=== PATIENT | male | born 1965 | race Caucasian/White ===

== ENCOUNTER 2016-10-30 23:35 | Inpatient (IN) | payer OTHER ==
--- NOTE | ~2016-10-30 | IDS ---
Interim Discharge Summary [facility] [address] [place]. [address] NAME: CARLOS MELENDEZ : 61 STATUS : ADM IN PAT#: [id number] AGE: 51 ADM/REG DATE : 10/30/16 MR#: [id number] REPORT SERV DATE: 11/03/16 DICTATED BY: HARDIK SOTO DATE: 11/03/16 REPORT STATUS : Draft TRANSCRIBED BY: MODEliza DATE: 11/03/16 ADMISSION DATE: 10/30/2016 DISCHARGE DATE: BRIEF HISTORY OF PRESENT ILLNESS: Please see Dr. Person's detailed history and physical from 10/30/2016 for full details. Briefly, the patient is a 51-year-old gentleman with past medical history of fairly heavy alcohol abuse with associated cirrhosis, who was admitted back in April of last year for a variceal bleed, who presented back to the emergency department on the day of admission for dark stools and hematemesis. He was seen by GI who performed an EGD on him emergently. He was intubated by Anesthesia. He was found to have a grade 1 esophageal varix with some associated gastritis and a blood-filled stomach. He had an esophageal varix banded and was continued on proton pump inhibitor, octreotide, and Rocephin. He was extubated the following day by Dr. Raymundo on morning rounds and has remained clinically and hemodynamically stable since that time. At this point, Gastroenterology has signed off him with recommendations to continue antibiotics for seven days with daily PPI and ongoing monitoring of H and H level every 12 hours and he is moving to the floor. ACTIVE PROBLEM LIST: 1. Acute upper gastrointestinal bleed secondary to bleeding esophageal varix, status post endoscopic banding on 10/31, status post 4 units of FFP and 4 units of packed red blood cells. 2. Acute blood loss anemia associated with acute upper gastrointestinal bleed. 3. Acute hypoxemic respiratory failure associated with acute upper gastrointestinal bleed, extubated on 11/01. 4. Alcoholic cirrhosis. 5. Alcohol abuse. 6. Tobacco abuse. 7. Prophylaxis. He is on a PPI and SCDs and JUD's. We are monitoring H and H daily. He has been cleared for transfer to floor by GI and is a full code. He has scheduled Ativan for alcohol withdrawal symptoms and is on empiric Rocephin for a total of seven days from the time of his hospitalization. He is on thiamine and multivitamins and has morning labs ordered for tomorrow. He is tolerating a regular diet and will be handed off to Hospital Medicine Service for ongoing care. Navigator has been notified. Please see daily progress notes from Dr. Raymundo for additional details and call with questions. DELORES/KRISTINE Hardik Soto MD / [id number] Interim Discharge Summary [address] [address] NAME: CARLOS MELENDEZ : 61 STATUS : ADM IN [facility]#: [id number] AGE: 51 ADM/REG DATE : 10/30/16 MR#: [id number] REPORT SERV DATE: 11/03/16 DICTATED BY: HARDIK SOTO DATE: 11/03/16 REPORT STATUS : Draft TRANSCRIBED BY: KRISTINE DATE: 11/03/16 CC: MD Joey Sexton M.D.
--- NOTE | ~2016-10-30 | EGD ---
EGD REPORT [facility] [address] [place] [address] NAME: CARLOS MELENDEZ : 61 STATUS : ADM IN PAT#: [id number] AGE: 51 ADM/REG DATE : 10/30/16 MR#: [id number] REPORT SERV DATE: 10/31/16 DICTATED BY: LAURIE GALEANA III DATE: 10/31/16 REPORT STATUS : Draft [facility]ANSCRIBED BY: [facility] DATE: 10/31/16 Endoscopy Center Patient Name: Carlos Melendez Date of : 1965 Attending MD: LAURIE GALEANA III, MD Procedure Date No Time: 10/31/2016 Procedure: Upper GI endoscopy Indications: Hematemesis Medicines: General Anesthesia Complications: No immediate complications. Procedure: After obtaining informed consent, the endoscope was passed under direct vision. Throughout the procedure, the patient's blood pressure, pulse, and oxygen saturations were monitored continuously. The GIF IT Q160 [id number] was introduced through the mouth, and advanced to the fourth part of duodenum. The PCF H190L [id number] was introduced through the and advanced to the. The upper GI endoscopy was accomplished with ease. The patient tolerated the procedure well. Findings: Grade II varices with red juan c were found in the lower third of the esophagus. Three bands were successfully placed with complete eradication, resulting in deflation of varices. A small hiatus hernia was present. Severe portal hypertensive gastropathy was found in the entire examined stomach. Diffuse mildly erythematous mucosa c/w portal duodenopathy without active bleeding and with stigmata of bleeding was found in the entire duodenum. Impression: - Grade II esophageal varices. Completely eradicated. Banded. - Hiatus hernia. - Portal hypertensive gastropathy. - Erythematous duodenopathy. Procedure Code(s): --- Professional --- 06501, Esophagogastroduodenoscopy, flexible, transoral; with band ligation of esophageal/gastric varices Diagnosis Code(s): --- Professional --- I85.00, Esophageal varices without bleeding K44.9, Diaphragmatic hernia without obstruction or gangrene EGD REPORT [facility] [address] [place] [address] [place]. [address] NAME: CARLOS MELENDEZ : [birth year] STATUS : ADM IN [facility]#: [id number] AGE: 51 ADM/REG DATE : 10/30/16 MR#: [id number] REPORT SERV DATE: 10/31/16 DICTATED BY: LAURIE GALEANA III DATE: 10/31/16 REPORT STATUS : Draft TRANSCRIBED BY: [employer] DATE: 10/31/16 K76.6, Portal hypertension K31.89, Other diseases of stomach and duodenum K92.0, Hematemesis CPT copyright 2013 [employer]. All rights reserved. The codes documented in this report are preliminary and upon director of casework services review may be revised to meet current compliance requirements. LAURIE GALEANA III, MD 10/31/2016 6:19 PM This report has been signed electronically. Number of Addenda: 0 Note Initiated On: 10/31/2016 5:41 PM Scope Withdrawal Time 0 hours 0 minutes 0 seconds [address] [facility] [place] [address]
--- NOTE | ~2016-10-30 | OP ---
Record Of Operation [facility] [address] [place]. [address] NAME: CARLOS MELENDEZ : 61 STATUS : ADM IN PAT#: [id number] AGE: 51 ADM/REG DATE : 10/30/16 MR#: [id number] REPORT SERV DATE: 10/31/16 DICTATED BY: DEBBIE KRISHNAMURTHY DATE: 10/31/16 REPORT STATUS : Draft TRANSCRIBED BY: MODL DATE: 10/31/16 DATE OF PROCEDURE: 10/31/2016 PROCEDURE: Panendoscopy. PREOPERATIVE DIAGNOSIS: Upper GI bleed, anemia, history of ETOH, cirrhosis. POSTOPERATIVE DIAGNOSES: 1. Distal esophagitis noted with superficial ulceration. 2. Schatzki's ring noted. 3. Questionable grade 1 varices noted. 4. Blood-filled fundus, cannot exclude underlying lesion there. 5. Portal gastropathy. PROCEDURE: The risk was explained prior to the procedure. The patient was intubated prior to procedure. The Olympus video endoscope was advanced into the esophagus. There was blood noted in the esophagus and stomach. After clearing lot of venous blood, distal esophagitis superficial ulceration noted. Schatzki's ring noted and questionable grade 1 varices noted, which flatten with insufflation. The scope was then passed in the stomach. Portal gastropathy noted. On right side, he has large amount of blood clot in the fundus. Cleared most of this. No underlying only obvious lesion noted. But, again still some retained blood clot. Remainder of the stomach otherwise unremarkable. The scope was then advanced to duodenum first and second portion, which appeared normal. The scope was pulled back in the stomach, then pulled back in the esophagus and removed. The patient tolerated the procedure well. No complications noted. DC/KRISTINE Debbie Krishnamurthy M.D. / [id number] CC: MD Joey Garduno M.D. William M. Cooney, MD
--- NOTE | ~2016-10-30 | EGD ---
EGD REPORT [facility] [address] [place] [address] NAME: CARLOS MELENDEZ : 61 STATUS : ADM IN PAT#: [id number] AGE: 51 ADM/REG DATE : 10/30/16 MR#: [id number] REPORT SERV DATE: 10/31/16 DICTATED BY: LAURIE GALEANA III DATE: 10/31/16 REPORT STATUS : Draft [facility]ED [facility]: [facility] DATE: 10/31/16 Endoscopy Center Patient Name: Carlos Melendez Date of : 1965 Attending MD: LAURIE GALEANA III, MD Procedure Date No Time: 10/31/2016 Procedure: Upper GI endoscopy Indications: Hematemesis Medicines: General Anesthesia Complications: No immediate complications. Procedure: After obtaining informed consent, the endoscope was passed under direct vision. Throughout the procedure, the patient's blood pressure, pulse, and oxygen saturations were monitored continuously. The GIF IT Q160 [id number] was introduced through the mouth, and advanced to the fourth part of duodenum. The PCF H190L [id number] was introduced through the mouth, and advanced to the. The upper GI endoscopy was accomplished with ease. The patient tolerated the procedure well. Findings: Grade II varices with red juan c were found in the lower third of the esophagus. Three bands were successfully placed with complete eradication, resulting in deflation of varices. A small hiatus hernia was present. Severe portal hypertensive gastropathy was found in the entire examined stomach. Diffuse mildly erythematous mucosa c/w portal duodenopathy without active bleeding and with stigmata of bleeding was found in the entire duodenum. Impression: - Grade II esophageal varices. Completely eradicated. Banded. - Hiatus hernia. - Portal hypertensive gastropathy. - Erythematous duodenopathy. Procedure Code(s): --- Professional --- 88169, Esophagogastroduodenoscopy, flexible, transoral; with band ligation of esophageal/gastric varices Diagnosis Code(s): --- Professional --- I85.00, Esophageal varices without bleeding K44.9, Diaphragmatic hernia without obstruction or gangrene EGD REPORT [facility] [address] [facility] [place]. [address] NAME: CARLOS MELENDEZ : [birth year] STATUS : ADM IN [facility]#: [id number] AGE: 51 ADM/REG DATE : 10/30/16 MR#: [id number] REPORT SERV DATE: 10/31/16 DICTATED BY: LAURIE GALEANA III DATE: 10/31/16 REPORT STATUS : Draft TRANSCRIBED BY: [employer] DATE: 10/31/16 K76.6, Portal hypertension K31.89, Other diseases of stomach and duodenum K92.0, Hematemesis CPT copyright 2013 [employer]. All rights reserved. The codes documented in this report are preliminary and upon greenskeeper supervisor review may be revised to meet current compliance requirements. LAURIE GALEANA III, MD 10/31/2016 6:19 PM This report has been signed electronically. Number of Addenda: 0 Note Initiated On: 10/31/2016 5:41 PM Scope Withdrawal Time 0 hours 0 minutes 0 seconds [address] [facility] [place] [address]
--- NOTE | ~2016-10-30 | HP ---
History And Physical [address] [place]. [address] NAME: CARLOS MELENDEZ : [birth year] STATUS : ADM IN [facility]#: [id number] AGE: 51 ADM/REG DATE : 10/30/16 MR#: [id number] REPORT SERV DATE: 10/31/16 DICTATED BY: DEBBIE PERSON DATE: 10/31/16 REPORT STATUS : Draft TRANSCRIBED BY: MODL DATE: 10/31/16 DATE OF ADMISSION: 10/30/2016 CHIEF COMPLAINT: Vomiting blood. HISTORY OF PRESENT ILLNESS: The patient is a 51-year-old white gentleman with a past medical history of alcohol abuse, cirrhosis, and osteoarthritis who was admitted to the hospital back in April of last year for a varicocele bleed, who now comes into the emergency room complaining of dark stools and vomiting blood. Per ER report, the patient had been having some melena for the past two to three days and then on the evening of admission started vomiting bright red blood. He had several episodes of bright red emesis downstairs in the emergency room. Hemodynamically, he was okay, but given his history of variceal bleeds and the large amount of blood that he was vomiting, decision was made to admit to the ICU tonight for management. Gastroenterology had already been consulted and was coming in to perform an EGD tonight, so the patient was intubated by Anesthesia with plans to leave intubated for the next 24 to 48 hours. The patient is currently on the ventilator and unable to provide history. EGD has already been performed by Dr. Charles which revealed grade 1 esophageal varices as well as some gastritis and a blood-filled stomach. The patient remains a Protonix drip and octreotide drip at this time with plans for followup endoscopy tomorrow. PAST MEDICAL HISTORY: 1. Alcohol abuse. 2. Cirrhosis. 3. History of varicocele bleed. 4. Osteoarthritis. HOME MEDICATIONS: 1. Pepcid 40 mg p.o. daily. 2. Advil 400 mg twice daily as needed for pain. 3. Tylenol 500 mg twice daily as needed for pain. 4. ProAir three puffs inhaled twice daily as needed for shortness of breath. 5. Artificial tears one drop daily as needed for dry eyes. 6. Vitamin B12 one tab p.o. daily. 7. Ferrous sulfate 325 mg p.o. daily. 8. Vitamin C one tab p.o. daily. ALLERGIES: NO KNOWN DRUG ALLERGIES. SOCIAL HISTORY: History of alcohol use, unclear at this time how much. No tobacco use. No IV drug abuse. FAMILY HISTORY: Per the chart, positive for coronary disease and CVA. REVIEW OF SYSTEMS: Unable to obtain secondary to sedation and intubation. History And Physical [address] [address] NAME: CARLOS MELENDEZ : [birth year] STATUS : ADM IN [facility]#: [id number] AGE: 51 ADM/REG DATE : 10/30/16 MR#: [id number] REPORT SERV DATE: 10/31/16 DICTATED BY: DEBBIE PERSON DATE: 10/31/16 REPORT STATUS : Draft TRANSCRIBED BY: KRISTINE DATE: 10/31/16 PHYSICAL EXAMINATION: VITAL SIGNS: Temperature 98.7, heart rate 105, respiratory rate 21, blood pressure 111/64. GENERAL: Sedated, intubated. HEENT: Pupils equal, round, and reactive to light. ET tube in place. NECK: Supple. Nontender. No lymphadenopathy. No thyromegaly. No jugular venous distention. LUNGS: Clear to auscultation bilaterally. CARDIOVASCULAR: Tachycardic. No murmurs, rubs, or gallops. ABDOMEN: Soft, nontender, nondistended. Positive bowel sounds. No hepatosplenomegaly. EXTREMITIES: No cyanosis, clubbing, or edema. NEURO: Sedated. PSYCH: Unable to assess. LABS AND IMAGING: CBC with a hemoglobin of 8, white blood cell count of 11, platelets are 220. INR 1.4. Metabolic profile unremarkable. LFTs unremarkable. Alcohol level 27. Troponin normal. ASSESSMENT AND PLAN: The patient is a 51-year-old white gentleman with past medical history alcohol abuse, cirrhosis, and varices with a history of varicocele bleed who now presents with recurrent varicocele bleed, currently on the ventilator. 1. Respiratory failure. The patient will remain intubated for now for repeat endoscopy tomorrow. We will continue ventilator management. We will get a followup arterial blood gas and titrate his ventilator accordingly. We will provide daily awakening trials while the patient is intubated to assess mental status. Currently, he is requiring Precedex and fentanyl for sedation. We will add propofol as needed. 2. Acute variceal bleed. The patient is status post endoscopy by Dr. Charles with findings as above. He remains on octreotide and Protonix drip. We will monitor his complete blood count q.6 hours for the next 24 hours and transfuse when indicated. Currently, he is hemodynamically stable, but we will monitor his blood pressure closely and start vasopressors if needed. 3. History of alcohol abuse. We will monitor closely for signs and symptoms of alcohol withdrawal. We will place him on thiamine as well as multivitamin and folate. I will also place him on CIWA protocol for alcohol withdrawal. 4. The patient will be on SCDs for deep venous thrombosis prophylaxis. He is on a Protonix drip for gastrointestinal prophylaxis. 5. The patient is full code. 6. The patient has a high probability of sudden clinically significant or imminent life- threatening deterioration. Total critical care time spent on this patient was 40 minutes. [place]/KRISTINE Debbie Person MD History And Physical [address] [address] NAME: CARLOS MELENDEZ : 61 STATUS : ADM IN [facility]#: [id number] AGE: 51 ADM/REG DATE : 10/30/16 MR#: [id number] REPORT SERV DATE: 10/31/16 DICTATED BY: DEBBIE PERSON DATE: 10/31/16 REPORT STATUS : Draft TRANSCRIBED BY: KRISTINE DATE: 10/31/16 / [id number] CC: MD Joey Garduno M.D.
--- NOTE | ~2016-10-30 | CN ---
Consultation Report [address] [place] [id number] [facility] [address] [place]. [address] NAME: CARLOS MELENDEZ : 61 STATUS : ADM IN PAT#: [id number] AGE: 51 ADM/REG DATE : 10/30/16 MR#: [id number] REPORT SERV DATE: 10/31/16 DICTATED BY: DEBBIE KRISHNAMURTHY DATE: 10/31/16 REPORT STATUS : Draft TRANSCRIBED BY: KRISTINE DATE: 10/31/16 CONSULTATION DATE OF CONSULTATION: 10/31/2016 This is a 51-year-old white male, who has been seen by Dr. Wayne before in April, who presents with a two-day history of dark stools and also coffee-grounds emesis. No fever. Has had some mild abdominal pain; history of some osteoarthritis, on nonsteroidals; has a history of alcoholic cirrhosis, had EGD and evaluation by Dr. Wayne back in 04/2016, found to have grade 1 varices and mild portal gastropathy. He has continued to smoke and drink. Has asthma, on an inhaler. No abdominal surgeries. FAMILY HISTORY: Positive for alcoholic cirrhosis. SOCIAL HISTORY: As outlined above. Hemoglobin of 8, white count of 11,000, platelet count of 220,000, and INR of 1.4. LFTs unremarkable except for alkaline phos of 198. PHYSICAL EXAMINATION: GENERAL: An acutely ill-appearing white male but alert. HEENT: Anicteric. NECK: Negative. CHEST: Clear to percussion. HEART: Tachycardia. ABDOMEN: Soft. Some mild distention. Minimal tenderness. Has an umbilical hernia. Bowel sounds present. EXTREMITIES: Grossly intact. NEUROLOGIC: Grossly intact. ASSESSMENT: 1. Upper gastrointestinal bleed anemia; history of ETOH cirrhosis with past history of grade 1 varix; and portal gastropathy, hemoglobin of 8, normal platelets, normal INR. 2. Asthma. 3. Osteoarthritis. SUGGESTIONS: Protonix drip and Sandostatin drip, and we will do an EGD tonight. Thank you very much for the consultation. LEVAR/KRISTINE Debbie Krishnamurthy M.D. Consultation Report [facility] [address] [place]. [address] NAME: CARLOS MELENDEZ : 61 STATUS : ADM IN PAT#: [id number] AGE: 51 ADM/REG DATE : 10/30/16 MR#: [id number] REPORT SERV DATE: 10/31/16 DICTATED BY: DEBBIE KRISHNAMURTHY DATE: 10/31/16 REPORT STATUS : Draft TRANSCRIBED BY: MODL DATE: 10/31/16 / [id number] CC: MD Joey Garduno M.D. William M. Cooney, MD
--- NOTE | ~2016-10-30 | DS ---
Discharge Summary [facility] [address] [place]. [address] NAME: CARLOS MELENDEZ : 61 STATUS : DIS IN PAT#: [id number] AGE: 51 ADM/REG DATE : 10/30/16 MR#: [id number] REPORT SERV DATE: 11/06/16 DICTATED BY: AFRICA HATCH DATE: 11/05/16 REPORT STATUS : Draft TRANSCRIBED BY: MODL DATE: 11/05/16 ADMISSION DATE: 10/30/2016 DISCHARGE DATE: 11/05/2016 HOSPITAL COURSE: This dictation is in addition to interim discharge summary dictated by Dr. Nair on 11/03/2016. I assumed care of the patient till 11/04/2016. At the time of my assumption of care, the patient was out of the ICU and had been transferred to the floor. The patient remained hemodynamically stable with no evidence of alcohol withdrawal. He was continued on a seven-day course of IV Rocephin started in the ICU, today will be the seventh. Today, will be day #7 of antibiotic therapy. After completion of antibiotic therapy, the patient will be cleared for discharge to home. He has remained hemodynamically stable with no evidence of GI bleeding. Given resolution of symptoms on completion of management, the patient will be discharged to home. Plan has been discussed with the patient who voices understanding and is agreeable with this plan. DISCHARGE DIAGNOSES: 1. Cirrhosis. 2. Acute gastrointestinal bleed. 3. Acute hypoxic respiratory failure. 4. Alcohol abuse. 5. Tobacco abuse. 6. Hypokalemia. DISCHARGE PHYSICAL EXAMINATION: VITAL SIGNS: Blood pressure 118/73, a pulse of 94, respirations 17, O2 saturation at 97% on room air, temperature 98.7. GENERAL: The patient lying in bed, in no acute distress. Appears stated age. HEENT: Normocephalic, atraumatic. Extraocular motors intact. Moist oral mucosa. Anicteric sclerae. Pupils round and reactive to light and accommodation. No conjunctival pallor. No conjunctival injection noted. NECK: Trachea midline and symmetric. No JVD present. No thyromegaly noted. No lymphadenopathy noted. CHEST: Nontender to palpation. No scars noted. CARDIOVASCULAR: Regular rate and rhythm. S1, S2. No murmurs, rubs, or gallops. LUNGS: Lungs are clear to auscultation bilaterally. No rhonchi, wheezes, rales. ABDOMEN: Positive bowel sounds. Distended and nontender to palpation. EXTREMITIES: No cyanosis, no clubbing, no edema. NEURO: Alert and oriented x3. No focal deficits appreciated. DISCHARGE MEDICATIONS: The patient will continue on medications which would include famotidine 40 mg p.o. every morning, albuterol three puffs inhalations p.r.n., ferrous sulfate 3 mg to 5 mg p.o. daily, pantoprazole 40 mg p.o. daily. IMAGING: Abdominal ultrasound, impression: Scant amount of ascites. This would preclude safe ultrasound-guided paracentesis. The ascites appears simple. There does not appear to be any debris or septations were present. Discharge Summary [address] [address] NAME: CARLOS MELENDEZ : 61 STATUS : DIS IN PAT#: [id number] AGE: 51 ADM/REG DATE : 10/30/16 MR#: [id number] REPORT SERV DATE: 11/06/16 DICTATED BY: AFRICA HATCH DATE: 11/05/16 REPORT STATUS : Draft TRANSCRIBED BY: KRISTINE DATE: 11/05/16 DISPOSITION: The patient will be discharged to home. He has been counseled on alcohol abstinence and tobacco abstinence. Activity as tolerated. Diet as tolerated. Greater than 30 minutes was spent planning discharge, coordinating care, and dictation of new medication reconciliation, writing prescription. WENCESLAO/KRISTINE Africa Hatch MD / [id number] CC: MD Joey Kim M.D.
[2016-10-30 23:27] LABS: BASOPHILS 0.2 %; BASOPHILS ABSOLUTE 0.02 10/3/uL (0.0-0.16); EOSINOPHILS 0.1 %; EOSINOPHILS ABSOLUTE 0.01 10/3/uL (0.0-0.53); HEMATOCRIT 25.4 % (40.0-51.0); IMMATURE GRANULOCYTES 0.3 %; IMMATURE GRANULOCYTES ABSOLUTE 0.03 10/3/uL (0.0-0.11); LYMPHOCYTES 10.7 %; LYMPHOCYTES ABSOLUTE 1.19 10/3/uL (0.67-4.30); MEAN CORPUS HGB CONC 31.5 g/dL (32.0-36.0); MEAN PLATELET VOLUME 7.9 fL (9.2-13.0); MONOCYTES 7.3 %; MONOCYTES ABSOLUTE 0.81 10/3/uL (0.21-1.20); NEUTROPHILS 81.4 %; NEUTROPHILS ABSOLUTE 9.02 10/3/uL (2.02-8.40); PLATELET COUNT 220 10/3/uL (150-400); RBC DISTRIBUTION WIDTH 18.8 % (12.0-16.0)
[~2016-10-30 23:35] MED LIST: ACET500CAP PO; ADVIL PO; ALEVE220 MG PO; FERROUS SULF325 M1 PO; PEP20 PO; PROAIR HFA INH; PROTONIX PO; REFRESH OPH; VITAMIN B-12 PO; VITAMIN C PO
[2016-10-30 23:38] LABS: INTERNATIONAL NORMAL RATI 1.4 UNITS (-); PARTIAL THROMBO TIME 29.8 SEC (22.5-37.2); PROTIME (NOT ORD) 16.9 SEC (12.0-14.5)
[2016-10-30 23:39] LABS: MEAN CORPUSCULAR HEMOGLOB 30.8 pg (26.0-34.0); MEAN CORPUSCULAR VOLUME 97.7 fL (80-100); WHITE BLOOD CELLS 11.1 10/3/uL (4.5-10.5)
[2016-10-30 23:44] LABS: A/G RATIO 0.6 (0.7-1.9); ALBUMIN 2.5 G/DL (3.5-5.0); ALCOHOL 27 MG/DL (0); CALCIUM, SERUM 7.6 MG/DL (8.5-10.4); CHLORIDE, SERUM 107 MMOL/L (96-112); CO2 (CARBON DIOXIDE) 26 MMOL/L (24-34); CREATININE 0.65 MG/DL (0.70-1.30); GFR AFRICAN AMERICAN 129 ML/MIN (>=60); GFR NON AFRICAN AMERICAN 111 ML/MIN (>=60); POTASSIUM, SERUM 4.1 MMOL/L (3.5-5.3); SGOT(AST) 37 U/L (5-40); SGPT(ALT) 19 U/L (5-65); SODIUM, SERUM 145 MMOL/L (135-148); TOTAL PROTEIN 6.5 G/DL (6.0-8.5); TROPONIN I <0.02 NG/ML (<0.05)
[2016-10-30 23:45] LABS: ALKALINE PHOSPHATASE 198 U/L (45-117); BUN (BLOOD UREA NITROGEN) 15 MG/DL (6-23); GLUCOSE, SERUM 98 MG/DL (60-99); TOTAL BILIRUBIN 0.9 MG/DL (0-1.2)
[2016-10-31 00:30] LABS: MANUAL DIFF NO %
[2016-10-31 03:49] LABS: ALLENS TEST Pos; BE (BASE EXCESS) -2.3 MEQ/L (0 +/- 2.5); CARBOXYHEMOGLOBIN 0.3 % (0-3); HCO3 (ACTUAL BICARBONATE) 22.2 MEQ/L (23-27); INSTRUMENT SERIAL # 35151; MODE CMV; O2 CONTENT 11.2 VOL% (18-24); OPERATOR ID 31061; PCO2 (CO2 TENSION) 37 MMHG (35-45); PO2 (O2 TENSION) 145 MMHG (79-93); SAMPLE Arterial; TIDAL VOLUME 500 ML
[2016-10-31 04:25] LABS: INTERNATIONAL NORMAL RATI 1.6 UNITS (-); PARTIAL THROMBO TIME 33.7 SEC (22.5-37.2); PROTIME (NOT ORD) 19.1 SEC (12.0-14.5)
[2016-10-31 04:30] LABS: BASOPHILS 0.1 %; BASOPHILS ABSOLUTE 0.01 10/3/uL (0.0-0.16); EOSINOPHILS 0 %; HEMOGLOBIN 7.1 g/dL (13.6-17.8); IMMATURE GRANULOCYTES 0.4 %; IMMATURE GRANULOCYTES ABSOLUTE 0.03 10/3/uL (0.0-0.11); LYMPHOCYTES ABSOLUTE 0.59 10/3/uL (0.67-4.30); MEAN CORPUS HGB CONC 32.4 g/dL (32.0-36.0); MEAN CORPUSCULAR VOLUME 95.6 fL (80-100); MEAN PLATELET VOLUME 8.8 fL (9.2-13.0); MONOCYTES 8.7 %; MONOCYTES ABSOLUTE 0.64 10/3/uL (0.21-1.20); NEUTROPHILS 82.8 %; NEUTROPHILS ABSOLUTE 6.08 10/3/uL (2.02-8.40); RBC DISTRIBUTION WIDTH 18.5 % (12.0-16.0); RED CELL COUNT 2.29 10/6/uL (4.7-6.1); WHITE BLOOD CELLS 7.4 10/3/uL (4.5-10.5)
[2016-10-31 04:33] LABS: BUN (BLOOD UREA NITROGEN) 18 MG/DL (6-23); CHLORIDE, SERUM 110 MMOL/L (96-112); CO2 (CARBON DIOXIDE) 26 MMOL/L (24-34); CREATININE 0.77 MG/DL (0.70-1.30); GFR AFRICAN AMERICAN 120 ML/MIN (>=60); GFR NON AFRICAN AMERICAN 104 ML/MIN (>=60); PHOSPHORUS, SERUM 3.3 MG/DL (2.5-4.5); SGOT(AST) 29 U/L (5-40); SGPT(ALT) 16 U/L (5-65); SODIUM, SERUM 146 MMOL/L (135-148); TOTAL BILIRUBIN 1.2 MG/DL (0-1.2)
[2016-10-31 04:35] LABS: A/G RATIO 0.6 (0.7-1.9); ALBUMIN 1.9 G/DL (3.5-5.0); ALKALINE PHOSPHATASE 148 U/L (45-117); CALCIUM, SERUM 6.9 MG/DL (8.5-10.4); GLUCOSE, SERUM 158 MG/DL (60-99); POTASSIUM, SERUM 5.2 MMOL/L (3.5-5.3); TOTAL PROTEIN 4.9 G/DL (6.0-8.5)
[2016-10-31 04:36] LABS: HEMATOCRIT 21.9 % (40.0-51.0); MANUAL DIFF NO %; PLATELET COUNT 129 10/3/uL (150-400)
[2016-10-31 04:44] LABS: PREALBUMIN 8.1 MG/DL (17.0-43.0)
[2016-10-31 12:59] LABS: BASOPHILS 0.2 %; BASOPHILS ABSOLUTE 0.02 10/3/uL (0.0-0.16); EOSINOPHILS 0 %; IMMATURE GRANULOCYTES 0.4 %; IMMATURE GRANULOCYTES ABSOLUTE 0.04 10/3/uL (0.0-0.11); MEAN CORPUSCULAR HEMOGLOB 30.7 pg (26.0-34.0); MEAN PLATELET VOLUME 8.8 fL (9.2-13.0); MONOCYTES 11.9 %; MONOCYTES ABSOLUTE 1.31 10/3/uL (0.21-1.20); NEUTROPHILS 77.5 %; PLATELET COUNT 116 10/3/uL (150-400); RBC DISTRIBUTION WIDTH 18.8 % (12.0-16.0)
[2016-10-31 13:00] LABS: HEMATOCRIT 29.6 % (40.0-51.0); HEMOGLOBIN 10.2 g/dL (13.6-17.8); MANUAL DIFF NO %; MEAN CORPUS HGB CONC 34.5 g/dL (32.0-36.0); MEAN CORPUSCULAR VOLUME 89.2 fL (80-100); RED CELL COUNT 3.32 10/6/uL (4.7-6.1)
[2016-10-31 17:20] LABS: BASOPHILS 0.1 %; BASOPHILS ABSOLUTE 0.01 10/3/uL (0.0-0.16); EOSINOPHILS 0 %; HEMATOCRIT 29.2 % (40.0-51.0); IMMATURE GRANULOCYTES 0.2 %; IMMATURE GRANULOCYTES ABSOLUTE 0.03 10/3/uL (0.0-0.11); LYMPHOCYTES 10.1 %; LYMPHOCYTES ABSOLUTE 1.25 10/3/uL (0.67-4.30); MEAN CORPUS HGB CONC 34.2 g/dL (32.0-36.0); MEAN CORPUSCULAR HEMOGLOB 30.2 pg (26.0-34.0); MEAN CORPUSCULAR VOLUME 88.2 fL (80-100); MEAN PLATELET VOLUME 9.2 fL (9.2-13.0); MONOCYTES 12.2 %; MONOCYTES ABSOLUTE 1.51 10/3/uL (0.21-1.20); NEUTROPHILS 77.4 %; NEUTROPHILS ABSOLUTE 9.53 10/3/uL (2.02-8.40); PLATELET COUNT 123 10/3/uL (150-400); RBC DISTRIBUTION WIDTH 19.4 % (12.0-16.0); RED CELL COUNT 3.31 10/6/uL (4.7-6.1); WHITE BLOOD CELLS 12.3 10/3/uL (4.5-10.5)
[2016-10-31 17:25] LABS: MANUAL DIFF NO %
[2016-10-31 22:47] LABS: BASOPHILS 0.2 %; BASOPHILS ABSOLUTE 0.02 10/3/uL (0.0-0.16); EOSINOPHILS 0.1 %; EOSINOPHILS ABSOLUTE 0.01 10/3/uL (0.0-0.53); HEMATOCRIT 27.3 % (40.0-51.0); HEMOGLOBIN 9.3 g/dL (13.6-17.8); IMMATURE GRANULOCYTES 0.2 %; IMMATURE GRANULOCYTES ABSOLUTE 0.02 10/3/uL (0.0-0.11); LYMPHOCYTES 12.1 %; LYMPHOCYTES ABSOLUTE 1.31 10/3/uL (0.67-4.30); MEAN CORPUS HGB CONC 34.1 g/dL (32.0-36.0); MEAN CORPUSCULAR HEMOGLOB 30.6 pg (26.0-34.0); MEAN CORPUSCULAR VOLUME 89.8 fL (80-100); MEAN PLATELET VOLUME 9.5 fL (9.2-13.0); MONOCYTES 11.7 %; MONOCYTES ABSOLUTE 1.26 10/3/uL (0.21-1.20); NEUTROPHILS 75.7 %; NEUTROPHILS ABSOLUTE 8.18 10/3/uL (2.02-8.40); PLATELET COUNT 108 10/3/uL (150-400); RBC DISTRIBUTION WIDTH 19.9 % (12.0-16.0); RED CELL COUNT 3.04 10/6/uL (4.7-6.1); WHITE BLOOD CELLS 10.8 10/3/uL (4.5-10.5)
[2016-10-31 22:48] LABS: MANUAL DIFF NO %
[2016-11-01 04:10] LABS: ALLENS TEST Pos; BE (BASE EXCESS) 3.4 MEQ/L (0 +/- 2.5); CARBOXYHEMOGLOBIN 0.3 % (0-3); HCO3 (ACTUAL BICARBONATE) 27.4 MEQ/L (23-27); HEMOBLOGIN CONTENT 9.6 G/DL (14-18); INSTRUMENT SERIAL # 35151; METHEMOGLOBIN 0.7 % (0-3); O2 CONTENT 13.4 VOL% (18-24); OPERATOR ID 33214; PCO2 (CO2 TENSION) 39 MMHG (35-45); PO2 (O2 TENSION) 132 MMHG (79-93); SAMPLE Arterial; TIDAL VOLUME 500 ML; pH 7.46 (7.37-7.43)
[2016-11-01 05:18] LABS: BASOPHILS 0.1 %; BASOPHILS ABSOLUTE 0.01 10/3/uL (0.0-0.16); EOSINOPHILS 0.5 %; EOSINOPHILS ABSOLUTE 0.05 10/3/uL (0.0-0.53); HEMATOCRIT 28.2 % (40.0-51.0); HEMOGLOBIN 9.4 g/dL (13.6-17.8); IMMATURE GRANULOCYTES 0.4 %; IMMATURE GRANULOCYTES ABSOLUTE 0.04 10/3/uL (0.0-0.11); LYMPHOCYTES 14.4 %; LYMPHOCYTES ABSOLUTE 1.44 10/3/uL (0.67-4.30); MANUAL DIFF NO %; MEAN CORPUS HGB CONC 33.3 g/dL (32.0-36.0); MEAN CORPUSCULAR HEMOGLOB 30.1 pg (26.0-34.0); MEAN CORPUSCULAR VOLUME 90.4 fL (80-100); MEAN PLATELET VOLUME 9.6 fL (9.2-13.0); MONOCYTES 8.5 %; MONOCYTES ABSOLUTE 0.85 10/3/uL (0.21-1.20); NEUTROPHILS 76.1 %; NEUTROPHILS ABSOLUTE 7.63 10/3/uL (2.02-8.40); PLATELET COUNT 97 10/3/uL (150-400); RBC DISTRIBUTION WIDTH 19.8 % (12.0-16.0); RED CELL COUNT 3.12 10/6/uL (4.7-6.1)
[2016-11-01 05:19] LABS: INTERNATIONAL NORMAL RATI 1.3 UNITS (-)
[2016-11-01 05:23] LABS: PROTIME (NOT ORD) 15.9 SEC (12.0-14.5)
[2016-11-01 05:34] LABS: ALKALINE PHOSPHATASE 140 U/L (45-117); CALCIUM, SERUM 7.7 MG/DL (8.5-10.4); CHLORIDE, SERUM 108 MMOL/L (96-112); CO2 (CARBON DIOXIDE) 29 MMOL/L (24-34); CREATININE 0.61 MG/DL (0.70-1.30); GFR AFRICAN AMERICAN 132 ML/MIN (>=60); GFR NON AFRICAN AMERICAN 114 ML/MIN (>=60); SGOT(AST) 31 U/L (5-40); SGPT(ALT) 16 U/L (5-65); SODIUM, SERUM 147 MMOL/L (135-148)
[2016-11-01 05:36] LABS: A/G RATIO 0.7 (0.7-1.9); ALBUMIN 2.5 G/DL (3.5-5.0); BUN (BLOOD UREA NITROGEN) 14 MG/DL (6-23); GLOBULIN 3.6 G/DL (2.5-4.1); GLUCOSE, SERUM 112 MG/DL (60-99); POTASSIUM, SERUM 3.5 MMOL/L (3.5-5.3); TOTAL BILIRUBIN 1.9 MG/DL (0-1.2); TOTAL PROTEIN 6.1 G/DL (6.0-8.5)
[2016-11-01 11:42] LABS: PHOSPHORUS, SERUM 1.6 MG/DL (2.5-4.5)
[2016-11-02 05:52] LABS: BASOPHILS 0.2 %; BASOPHILS ABSOLUTE 0.02 10/3/uL (0.0-0.16); EOSINOPHILS 0.9 %; HEMATOCRIT 29.7 % (40.0-51.0); HEMOGLOBIN 9.8 g/dL (13.6-17.8); IMMATURE GRANULOCYTES 0.4 %; IMMATURE GRANULOCYTES ABSOLUTE 0.04 10/3/uL (0.0-0.11); LYMPHOCYTES 15.9 %; LYMPHOCYTES ABSOLUTE 1.69 10/3/uL (0.67-4.30); MEAN CORPUSCULAR HEMOGLOB 30.6 pg (26.0-34.0); MEAN CORPUSCULAR VOLUME 92.8 fL (80-100); MEAN PLATELET VOLUME 9.3 fL (9.2-13.0); MONOCYTES 8.5 %; NEUTROPHILS 74.1 %; NEUTROPHILS ABSOLUTE 7.87 10/3/uL (2.02-8.40); PLATELET COUNT 102 10/3/uL (150-400); RBC DISTRIBUTION WIDTH 19.2 % (12.0-16.0); WHITE BLOOD CELLS 10.6 10/3/uL (4.5-10.5)
[2016-11-02 05:53] LABS: MANUAL DIFF NO %
[2016-11-02 06:11] LABS: BUN (BLOOD UREA NITROGEN) 11 MG/DL (6-23); CALCIUM, SERUM 7.9 MG/DL (8.5-10.4); CHLORIDE, SERUM 107 MMOL/L (96-112); CO2 (CARBON DIOXIDE) 28 MMOL/L (24-34); CREATININE 0.61 MG/DL (0.70-1.30); GFR AFRICAN AMERICAN 132 ML/MIN (>=60); GFR NON AFRICAN AMERICAN 114 ML/MIN (>=60); GLUCOSE, SERUM 102 MG/DL (60-99); POTASSIUM, SERUM 3.5 MMOL/L (3.5-5.3); SODIUM, SERUM 144 MMOL/L (135-148)
[2016-11-03 04:02] LABS: BASOPHILS 0.2 %; BASOPHILS ABSOLUTE 0.02 10/3/uL (0.0-0.16); EOSINOPHILS 1.2 %; EOSINOPHILS ABSOLUTE 0.11 10/3/uL (0.0-0.53); HEMATOCRIT 27.8 % (40.0-51.0); HEMOGLOBIN 9.3 g/dL (13.6-17.8); IMMATURE GRANULOCYTES 0.2 %; IMMATURE GRANULOCYTES ABSOLUTE 0.02 10/3/uL (0.0-0.11); LYMPHOCYTES 15.9 %; LYMPHOCYTES ABSOLUTE 1.44 10/3/uL (0.67-4.30); MEAN CORPUS HGB CONC 33.5 g/dL (32.0-36.0); MEAN CORPUSCULAR HEMOGLOB 31.2 pg (26.0-34.0); MEAN CORPUSCULAR VOLUME 93.3 fL (80-100); MEAN PLATELET VOLUME 9.4 fL (9.2-13.0); MONOCYTES ABSOLUTE 1.09 10/3/uL (0.21-1.20); NEUTROPHILS 70.5 %; PLATELET COUNT 119 10/3/uL (150-400); RBC DISTRIBUTION WIDTH 18.6 % (12.0-16.0); RED CELL COUNT 2.98 10/6/uL (4.7-6.1); WHITE BLOOD CELLS 9.1 10/3/uL (4.5-10.5)
[2016-11-03 04:03] LABS: MANUAL DIFF NO %
[2016-11-03 04:06] LABS: INTERNATIONAL NORMAL RATI 1.3 UNITS (-); PROTIME (NOT ORD) 15.8 SEC (12.0-14.5)
[2016-11-03 04:10] LABS: A/G RATIO 0.7 (0.7-1.9); ALBUMIN 2.3 G/DL (3.5-5.0); BUN (BLOOD UREA NITROGEN) 8 MG/DL (6-23); CHLORIDE, SERUM 106 MMOL/L (96-112); CO2 (CARBON DIOXIDE) 26 MMOL/L (24-34); CREATININE 0.59 MG/DL (0.70-1.30); GFR AFRICAN AMERICAN 134 ML/MIN (>=60); GFR NON AFRICAN AMERICAN 116 ML/MIN (>=60); GLOBULIN 3.4 G/DL (2.5-4.1); GLUCOSE, SERUM 86 MG/DL (60-99); POTASSIUM, SERUM 3.5 MMOL/L (3.5-5.3); SGOT(AST) 22 U/L (5-40); SGPT(ALT) 10 U/L (5-65); SODIUM, SERUM 141 MMOL/L (135-148); TOTAL PROTEIN 5.7 G/DL (6.0-8.5)
[2016-11-03 04:11] LABS: ALKALINE PHOSPHATASE 111 U/L (45-117); PHOSPHORUS, SERUM 2.1 MG/DL (2.5-4.5); TOTAL BILIRUBIN 1.3 MG/DL (0-1.2)
[2016-11-03 13:47] LABS: HEPARIN-INDUCED PLATELET AB NEGATIVE (NEGATIVE); HIT PATIENT O.D. 0.236 OD (0.000-0.299)
[2016-11-04 05:33] LABS: BASOPHILS 0.1 %; BASOPHILS ABSOLUTE 0.01 10/3/uL (0.0-0.16); EOSINOPHILS 1.5 %; EOSINOPHILS ABSOLUTE 0.16 10/3/uL (0.0-0.53); HEMATOCRIT 30.4 % (40.0-51.0); IMMATURE GRANULOCYTES 0.2 %; IMMATURE GRANULOCYTES ABSOLUTE 0.02 10/3/uL (0.0-0.11); LYMPHOCYTES 11.9 %; LYMPHOCYTES ABSOLUTE 1.28 10/3/uL (0.67-4.30); MANUAL DIFF NO %; MEAN CORPUS HGB CONC 32.9 g/dL (32.0-36.0); MEAN CORPUSCULAR HEMOGLOB 30.8 pg (26.0-34.0); MEAN CORPUSCULAR VOLUME 93.5 fL (80-100); MEAN PLATELET VOLUME 9.6 fL (9.2-13.0); MONOCYTES 15.2 %; MONOCYTES ABSOLUTE 1.63 10/3/uL (0.21-1.20); NEUTROPHILS 71.1 %; NEUTROPHILS ABSOLUTE 7.63 10/3/uL (2.02-8.40); PLATELET COUNT 138 10/3/uL (150-400); RBC DISTRIBUTION WIDTH 18.3 % (12.0-16.0); RED CELL COUNT 3.25 10/6/uL (4.7-6.1); WHITE BLOOD CELLS 10.7 10/3/uL (4.5-10.5)
[2016-11-04 05:48] LABS: ALBUMIN 2.5 G/DL (3.5-5.0); BUN (BLOOD UREA NITROGEN) 5 MG/DL (6-23); CALCIUM, SERUM 7.9 MG/DL (8.5-10.4); CHLORIDE, SERUM 104 MMOL/L (96-112); CO2 (CARBON DIOXIDE) 26 MMOL/L (24-34); CREATININE 0.66 MG/DL (0.70-1.30); GFR AFRICAN AMERICAN 128 ML/MIN (>=60); GFR NON AFRICAN AMERICAN 110 ML/MIN (>=60); GLUCOSE, SERUM 88 MG/DL (60-99); PHOSPHORUS, SERUM 2.9 MG/DL (2.5-4.5); POTASSIUM, SERUM 3.1 MMOL/L (3.5-5.3); SODIUM, SERUM 140 MMOL/L (135-148)
[2016-11-05 05:43] LABS: HEMATOCRIT 29.6 % (40.0-51.0); HEMOGLOBIN 9.9 g/dL (13.6-17.8); MEAN CORPUS HGB CONC 33.4 g/dL (32.0-36.0); MEAN CORPUSCULAR HEMOGLOB 30.7 pg (26.0-34.0); MEAN CORPUSCULAR VOLUME 91.9 fL (80-100); MEAN PLATELET VOLUME 9.5 fL (9.2-13.0); RED CELL COUNT 3.22 10/6/uL (4.7-6.1); WHITE BLOOD CELLS 9.4 10/3/uL (4.5-10.5)
[2016-11-05 05:48] LABS: MANUAL DIFF YES %; PLATELET COUNT 180 10/3/uL (150-400)
[2016-11-05 05:53] LABS: A/G RATIO 0.6 (0.7-1.9); ALBUMIN 2.5 G/DL (3.5-5.0); ALKALINE PHOSPHATASE 154 U/L (45-117); BUN (BLOOD UREA NITROGEN) 4 MG/DL (6-23); CALCIUM, SERUM 8.5 MG/DL (8.5-10.4); CHLORIDE, SERUM 106 MMOL/L (96-112); CO2 (CARBON DIOXIDE) 26 MMOL/L (24-34); CREATININE 0.55 MG/DL (0.70-1.30); GFR AFRICAN AMERICAN 138 ML/MIN (>=60); GFR NON AFRICAN AMERICAN 119 ML/MIN (>=60); GLOBULIN 4.1 G/DL (2.5-4.1); GLUCOSE, SERUM 92 MG/DL (60-99); POTASSIUM, SERUM 4.5 MMOL/L (3.5-5.3); SGOT(AST) 17 U/L (5-40); SGPT(ALT) 12 U/L (5-65); SODIUM, SERUM 140 MMOL/L (135-148); TOTAL PROTEIN 6.6 G/DL (6.0-8.5)
[2016-11-05 06:24] LABS: BAND NEUTROPHILS 2 %; EOSINOPHILS 2 %; EOSINOPHILS ABSOLUTE (CALC) 0.19 10/3/uL (0.0-0.53); IMMATURE GRANS ABSOLUTE (CALC) 0.09 10/3/uL (0.0-0.11); LYMPHOCYTES 13 %; LYMPHOCYTES ABSOLUTE (CALC) 1.79 10/3/uL (0.67-4.30); METAMYELOCYTES 1 %; MONOCYTES 17 %; MONOCYTES ABSOLUTE (CALC) 1.03 10/3/uL (0.21-1.20); PLATELET ESTIMATE ADQ (ADEQUATE); SEGMENTED NEUTROPHIL (0) 65 %; TOTAL NUCLEATED CELLS 100
[2016-11-05 06:25] LABS: ANISOCYTOSIS 1+ (5-10/OIF) (0-5/OIF)
[2016-11-05] MEDS ORDERED: PROTONIX PO (10:19)
[2016-12-07] MEDS ORDERED: BION TEARS OPH (20:49)
[2016-12-07] MEDS ORDERED: PROAIR HFA INH (20:49)
[2016-12-07] MEDS ORDERED: FERROUS SULF325 M1 PO (20:49)
[2016-12-07] MEDS ORDERED: TRAZ100 PO (20:50)
[2016-12-07] MEDS ORDERED: B12250T PO (20:53)
[2016-12-07] MEDS ORDERED: PROBIOTIC PO (20:53)
[2016-12-07] MEDS ORDERED: VITAMIN B PO (20:53)
[2016-12-07] MEDS ORDERED: PROTONIX PO (20:54)
[2016-12-07] MEDS ORDERED: V2 PO (20:54)
[2016-12-07] MEDS ORDERED: VITAMIN C PO (20:55)
== END 2016-11-05 12:17 | disposition home or self-care (01) | DRG 432 ==
LOC: ER 23:35 → CCU 23:38 → 7NO 11-03 14:40
PROVIDERS: Hospitalist; Internal Medicine; Internal Medicine Critical Care Medicine; Internal Medicine Gastroenterology; Specialist
PROC: 0BH17EZ Insertion of Endotracheal Airway into Trachea, Via Natural or Artificial Opening (ICD-10-PCS; 2016-10-31)
PROC: 30233K1 Transfusion of Nonautologous Frozen Plasma into Peripheral Vein, Percutaneous Approach (ICD-10-PCS; 2016-10-31)
PROC: 30233N1 Transfusion of Nonautologous Red Blood Cells into Peripheral Vein, Percutaneous Approach (ICD-10-PCS; 2016-10-31)
PROC: 5A1945Z Respiratory Ventilation, 24-96 Consecutive Hours (ICD-10-PCS; principal; 2016-10-31 00:51)
PROC: 06L34CZ Occlusion of Esophageal Vein with Extraluminal Device, Percutaneous Endoscopic Approach (ICD-10-PCS; principal; 2016-10-31 00:51)
DX: K70.30 Alcoholic cirrhosis of liver without ascites (principal); J96.01 Acute respiratory failure with hypoxia; I85.11 Secondary esophageal varices with bleeding; D62 Acute posthemorrhagic anemia; K22.2 Esophageal obstruction; F17.210 Nicotine dependence, cigarettes, uncomplicated; E87.6 Hypokalemia
CPT/HCPCS: 31720; 36415; 36600; 71010; 74000; 76705; 80048; 80053; 80069; 82330; 82805; 83735; 84100; 84132; 84134; 84484; 85025; 85610; 85730; 86022; 86850; 86900; 86901; 86920; 87641; 93005; 94002; 94003; 94660; 99291; A9270-GY; C9113; G0480; J0330; J2370; J2405; J2550; J2765; J3010; J3411; P9016; P9059

== ENCOUNTER 2016-12-07 21:11 | Inpatient (IN) | payer OTHER, MEDICARE ==
--- NOTE | ~2016-12-07 | DS ---
Discharge Summary [facility] [address] [place]. [address] NAME: CARLOS MELENDEZ : 61 STATUS : DIS IN PAT#: [id number] AGE: 51 ADM/REG DATE : 12/08/16 MR#: [id number] REPORT SERV DATE: 12/12/16 DICTATED BY: MIGUEL COX DATE: 12/10/16 REPORT STATUS : Draft TRANSCRIBED BY: MODEliza DATE: 12/10/16 ADMISSION DATE: 12/08/2016 DISCHARGE DATE: 12/10/2016 DISCHARGE DIAGNOSES: 1. Upper gastrointestinal bleed. 2. Esophageal varices. 3. Portal hypertensive gastropathy. 4. Liver cirrhosis. 5. History of alcohol abuse. 6. History of chronic obstructive pulmonary disease. 7. Normocytic anemia. 8. Ascites. DISCHARGE CONDITION: Stable. CONSULTATION: Gastroenterology. INVASIVE PROCEDURE: Endoscopy, performed by Dr. Renny Wayne. IMPRESSION: 1. Grade 1 esophageal varices. 2. Portal hypertensive gastropathy. 3. This admission was otherwise normal with no active bleeding. HISTORY OF PRESENT ILLNESS: For detailed HPI, please make reference to Dr. Hector Aguirre's dictation on 12/08/2016. In brief; this is a 51-year-old male with medical history of alcohol liver cirrhosis, history of esophageal varices, status post esophageal banding, who has had multiple admissions for variceal bleeds. He presented to the emergency room department with complaints of hematemesis and melena. He reported associated lightheadedness or near syncope. The patient endorsed history of ongoing alcohol use. In the ER, vital signs; temperature 98.2, pulse 99, blood pressure was 130/81, respiratory rate was 20. Physical examination, significant for abdomen with demonstrable ascites, no tympanitic resonance or tenderness on presentation. LABORATORY DATA: WBC was 5.6, hemoglobin was 11, and hematocrit 35. Sodium was 140, creatinine was 0.74, alcohol level was 89. INR was 1.3. AST 35, ALT 27, alkaline phosphatase 256. Total bili 1.8. Assessment of upper GI bleed likely due to esophageal varices was made in the ER. The Hospitalist Service was contacted to admit the patient for further management. HOSPITAL COURSE: 1. Upper GI bleed. The patient was started on octreotide IV drip, proton pump inhibitor IV drip, and admitted to the cardiac telemonitoring unit. Gastroenterology was consulted. Recommended EGD. The patient underwent EGD that showed grade 1 esophageal varices with portal hypertensive gastropathy. No active source of bleeding identified. Discharge Summary [facility] [id number] [place]. [address] NAME: CARLOS MELENDEZ : 61 STATUS : DIS IN PAT#: [id number] AGE: 51 ADM/REG DATE : 12/08/16 MR#: [id number] REPORT SERV DATE: 12/12/16 DICTATED BY: MIGUEL COX DATE: 12/10/16 REPORT STATUS : Draft TRANSCRIBED BY: KRISTINE DATE: 12/10/16 The patient was transitioned from n.p.o. to full liquid diet. The patient tolerated diet without any further complaints. H and H were monitored, post EGD. Hemoglobin remained stable at 11 mg/dL. The patient was advised to continue PPI and follow up with Gastroenterology as outpatient. 2. Ascites. During this admission, the patient was noted to have ascites, which was also demonstrated on CT scan of the abdomen. IR was contacted and recommended a CT-guided paracenteses. However, despite extensive counseling, the patient declined paracenteses. The patient was initially started on broad-spectrum antibiotics for empiric coverage of possible SBP. The patient reported no significant abdominal pain. The patient's WBC remained stable. The patient remained afebrile during the course of this admission. The patient was subsequently transitioned from IV ceftriaxone to p.o. levofloxacin to complete seven days empiric antibiotics treatment for SBP prophylaxis. Also, the patient was discharged home on spironolactone and Lasix. The patient was also advised to continue his lactulose p.r.n. to titrate to two to three bowel movements per day. The patient verbalized understanding of the above instruction prior to discharge. 3. Alcohol abuse. The patient was placed on Librium taper during the course of this admission, demonstrated no evidence of alcohol withdrawal. The patient verbalized the will to stop alcohol use, however, he is unwilling to join alcohol anonymous meeting. Despite extensive counseling, the patient reports that he will be able to quit drinking alcohol by himself without any further help. I doubt the patient's commitment to alcohol cessation. Given the bundles benefit of doubt, we discharged the patient to home on Librium taper and asked the patient to follow up with primary care physician for ongoing alcohol counseling and cessation. 4. COPD. No evidence of acute COPD exacerbation throughout the course of this admission. DISCHARGE MEDICATIONS: 1. Librium 5 mg p.o. b.i.d. 2. Levofloxacin 750 mg p.o. daily for five days. 3. Ferrous 325 mg p.o. daily. 4. Lactulose 30 mL p.o. t.i.d./p.r.n. to titrate to two to three stools per day. 5. Lasix 40 mg p.o. daily. 6. Spironolactone 25 mg p.o. daily. 7. Folic acid 1 mg p.o. daily. 8. Vitamin B12 1000 mcg p.o. daily. 9. Protonix 40 mg p.o. daily. 10.Trazodone 100 mg p.o. at bedtime. 11.ProAir HFA one puff p.r.n. 12.Probiotics one cap p.o. b.i.d. DISCHARGE FOLLOWUP: 1. Follow up with primary care physician within one to two weeks of discharge. 2. Follow up with Gastroenterology within two to three weeks of discharge. DISCHARGE INSTRUCTION: The patient to continue to abstain from alcohol use. DISCHARGE ACTIVITIES: As tolerated. Discharge Summary [address] [address] NAME: CARLOS MELENDEZ : 61 STATUS : DIS IN PAT#: [id number] AGE: 51 ADM/REG DATE : 12/08/16 MR#: [id number] REPORT SERV DATE: 12/12/16 DICTATED BY: MIGUEL COX DATE: 12/10/16 REPORT STATUS : Draft TRANSCRIBED BY: KRISTINE DATE: 12/10/16 Greater than 30 minutes was used to prepare this patient's discharge, reconcile medication, advise the patient on discharge plans and followup. EMILEO/KRISTINE Miguel Cox MD / [id number] CC: MD Joey Garcia M.D.
--- NOTE | ~2016-12-07 | CN ---
Consultation Report [facility] [address] [place]. [address] NAME: CARLOS MELENDEZ : 61 STATUS : ADM IN [facility]#: [id number] AGE: 51 ADM/REG DATE : 12/08/16 MR#: [id number] REPORT SERV DATE: 12/08/16 DICTATED BY: CRISTINA SINHA DATE: 12/08/16 REPORT STATUS : Draft TRANSCRIBED BY: MODL DATE: 12/08/16 GI CONSULTATION DATE OF CONSULTATION: 12/08/2016 REASON FOR CONSULTATION: Evaluation and management of upper GI bleeding. HISTORY OF PRESENT ILLNESS: Mr. Melendez is a 51-year-old male patient, admitted on the with a chief complaint of nausea, vomiting, hematemesis, as well as melena. The patient has been seen at [facility] multiple times since 04/2016 for upper GI bleeds secondary to esophageal varices and portal hypertensive gastropathy. Last admission was October of this year. He was seen actually by Dr. Charles. He was called in overnight. He had an EGD with him showing distal esophagitis noted with superficial ulcerations, Schatzki ring, questionable grade 1 varices, blood-filled fundus, not able to exclude underlying lesion and portal hypertensive gastropathy. He also has had endoscopy with Dr. Banuelos, 10/31/2016 that showed grade 2 esophageal varices that were completely eradicated and banded, hiatal hernia, portal hypertensive gastropathy, and erythematous duodenopathy. On 05/14/2016, he had an EGD with Dr. Wayne showing grade 1 esophageal varices, portal hypertensive gastropathy. Otherwise normal exam. The patient has a longstanding history of alcohol use/abuse. States that he had three beers yesterday, developed nausea and an abdominal pain described as crampy. Came into the emergency room. The patient complained of increasing abdominal distention. There was noted small amount of ascites the last time he was here in October. In October, the ascites was so small that he could not obtain a sample with ultrasound. He states he has had exertional dyspnea. He states after the three beers yesterday, he developed nausea and threw up three times about two to three cups. He states it has all been dark and coffee-ground in appearance. This morning, he states he did not sleep well. Since his October admission, he states that he has drank several times. It has been discussed with him multiple times on each admission, alcohol cessation. However, he continues to drink. I have discussed with him as well as Dr. Wayne, we will plan on pursuing upper endoscopy today. Risks, benefits, alternatives, and complications were detailed for him to include, but not limited to risk of bleeding, perforation, infection, reaction to medication, as well as cardiac and pulmonary side effects. CT on admission without contrast showed hepatomegaly with a small amount of ascites, fatty changes of the liver, and questionable HOLLOWAY cirrhosis. Of note, hemoglobin on admission, 11.8; presently, 11.7; discharge hemoglobin in 10/2016 was 9.9. When we first began to see him in 04/2016, he had a hemoglobin on admission of 2.9. PAST MEDICAL HISTORY: Alcoholism; cirrhosis secondary to questionably HOLLOWAY and alcohol abuse; esophageal varices, status post banding; portal hypertensive gastropathy; peptic ulcer disease; Schatzki ring; COPD; ascites; and arthritis. SURGICAL HISTORY: Shoulder repair secondary to dislocation, I and D of a back abscess, multiple endoscopies with banding of esophageal varices. Consultation Report [address] [place]. [address] NAME: CARLOS MELENDEZ : 61 STATUS : ADM IN [facility]#: [id number] AGE: 51 ADM/REG DATE : 12/08/16 MR#: [id number] REPORT SERV DATE: 12/08/16 DICTATED BY: CRISTINA SINHA DATE: 12/08/16 REPORT STATUS : Draft TRANSCRIBED BY: KRISTINE DATE: 12/08/16 ALLERGIES: NO KNOWN ALLERGIES. SOCIAL HISTORY: Positive tobacco. Positive for beer daily. Lives with a girlfriend. No illicits. FAMILY HISTORY: Noncontributory from a GI standpoint. HOME MEDICATIONS: ProAir HFA, Bion tear solution, vitamin B, vitamin B12, Valium, ferrous sulfate, Protonix, Desyrel, probiotic, and vitamin C. REVIEW OF SYSTEMS: A 10-point review of systems has been obtained with pertinent positives being addressed in the history of present illness. PERTINENT LABORATORY DATA: Sodium 142, potassium is 3.9, BUN is 4, creatinine is 0.6. White blood cell count 5.8, hemoglobin 11.7, hematocrit 36.6, platelet count 96. INR of 1.6, total bilirubin is 2.7, alkaline phosphatase is 225, ALT 24, AST 56, lipase 191. PHYSICAL EXAMINATION: VITAL SIGNS: Temperature 97.3, pulse 56, respirations of 18, blood pressure 112/53. GENERAL: Reveals an alert, male, resting in bed. Oriented x3. In general, he is cooperative. He is in mild distress secondary to "abdominal pain." He is awake, alert, and oriented x3. He has some mild tremors noted. HEAD, EARS, EYES, NOSE, AND THROAT: Anicteric. Pupils equal, round, and reactive to light and accommodation. Normocephalic and atraumatic. NECK: No JVD. No palpable nodes. LUNGS: Diminished throughout. CARDIOVASCULAR SYSTEM: Regular rate and rhythm. ABDOMEN: Soft, distended and round. He has a small umbilical hernia that is reducible. He has active bowel sounds. EXTREMITIES: Mild lower extremity edema. Normal distal pulses. SKIN: Warm, dry, and intact. ASSESSMENT AND PLAN: 1. Upper GI bleed with history of varices, status post banding in the past as well as portal hypertensive gastropathy. 2. Alcohol use/abuse, continued. 3. Cirrhosis, HOLLOWAY. Alcoholism. 4. Chronic obstructive pulmonary disease. 5. Anemia. 6. Ascites. PLAN: 1. Continue PPI and octreotide drips. 2. EGD today with Dr. Wayne. Consultation Report [address] [place]. [address] NAME: CARLOS MELENDEZ : 61 STATUS : ADM IN [facility]#: [id number] AGE: 51 ADM/REG DATE : 12/08/16 MR#: [id number] REPORT SERV DATE: 12/08/16 DICTATED BY: CRISTINA SINHA DATE: 12/08/16 REPORT STATUS : Draft TRANSCRIBED BY: KRISTINE DATE: 12/08/16 3. The patient needs alcohol cessation. 4. H and H q.6 x24, transfuse as needed. 5. Ultrasound-guided paracentesis if enough fluid obtainable. We will follow. STEPHANIE/KRISTINE Cristina SRI Mireles / [id number] CC: Leonid Madrigal M.D.
--- NOTE | ~2016-12-07 | HP ---
History And Physical [address] [place]. [address] NAME: CARLOS MELENDEZ : 61 STATUS : ADM IN [facility]#: [id number] AGE: 51 ADM/REG DATE : 12/08/16 MR#: [id number] REPORT SERV DATE: 12/08/16 DICTATED BY: BROOKE LAW DATE: 12/08/16 REPORT STATUS : Draft TRANSCRIBED BY: MODL DATE: 12/08/16 DATE OF ADMISSION: 12/08/2016 CHIEF COMPLAINT: A 51-year-old male with alcoholic cirrhosis and history of varices, now presenting with hematemesis and melena. HISTORY OF PRESENTING ILLNESS: The patient's history was obtained through careful interview with the patient, coupled with review of [facility] medical records. The patient, for the last four days, has had increasing abdominal pain and then for three days, has had pitch black melena stool with diarrhea. Today, he had an episode of vomiting, in which he states he vomited up about a 0.5 L of coffee-grounds emesis. He has had continued nausea since that time and is wondering if he will need to vomit again, but has not yet. He has had lightheadedness and near syncope. He describes lower abdominal discomfort, bilateral lower quadrants, bad cramping quality, 8 to 10 out of 10 severity. It got so bad that he said "I just could not even move." He describes increasing abdominal distention with ascites. He has had dyspnea on exertion with wheeze over the last two days, but no chest pain. No cough. He has noticed new-onset lower extremity edema over the last three weeks. REVIEW OF SYSTEMS: Otherwise, a 14-point review of systems was obtained and was negative. PAST MEDICAL HISTORY: 1. Cirrhosis from alcoholism. 2. Varices, status post banding in the past, followed by Dr. Wayne. 3. Peptic ulcer disease. 4. COPD. 5. Ascites. PAST SURGICAL HISTORY: 1. Shoulder surgery. 2. Back abscess incision and drainage. ALLERGIES: NO KNOWN DRUG ALLERGIES. SOCIAL HISTORY: The patient still smokes. Drinks five to twelve beers a day. Lives with his girlfriend. Has no biological children. Lives in [place], [place]. FAMILY HISTORY: Uncle with heart disease. Father with stroke. No family history of History And Physical [address] [place]. [address] NAME: CARLOS MELENDEZ : 61 STATUS : ADM IN [facility]#: [id number] AGE: 51 ADM/REG DATE : 12/08/16 MR#: [id number] REPORT SERV DATE: 12/08/16 DICTATED BY: BROOKE LAW DATE: 12/08/16 REPORT STATUS : Draft TRANSCRIBED BY: KRISTINE DATE: 12/08/16 cirrhosis known. CURRENT MEDICATIONS: Include albuterol inhaler, eye drops, vitamin B complex, vitamin B12, Valium 2 mg at bedtime, iron supplement 325 mg p.o. daily, Protonix 40 mg p.o. daily, trazodone 100 mg p.o. q.h.s., probiotics, vitamin C. PHYSICAL EXAMINATION: VITAL SIGNS: Temperature 98.2, pulse 99, blood pressure 130/81, respiratory rate 20, O2 saturation 99% on room air. GENERAL: An ill-appearing male, in evidence of distress secondary to his primary nausea complaint and abdominal pain complaint. HEENT: Pupils equal, round, and reactive to light. No conjunctival pallor. No scleral icterus. Nares are patent. Oropharynx is clear of obstruction. No intraoral lesions. No ulcers. Moist mucous membranes. NECK: Trachea midline. No thyromegaly. LYMPH: No cervical lymphadenopathy. No supraclavicular lymphadenopathy. No inguinal lymphadenopathy. RESPIRATORY: Clear to auscultation at bases. No wheezes, rales, or rhonchi. Normal respiratory effort. CARDIOVASCULAR: Regular rate and rhythm. No murmurs, rubs, or gallops. The patient does have pitting lower extremity edema around the ankles, shins, and feet symmetrically. ABDOMEN: Quite distended by examination with positive fluid wave. No tympanic resonance on percussion. Nontender throughout though. I do not appreciate hepatosplenomegaly at this juncture. DERMATOLOGICAL: Warm and dry extremities. No pallor, no cyanosis. PSYCHIATRIC: Normal affect. Good mood. Alert and oriented x3. LABORATORY DATA: White blood cell count 5.6, hemoglobin 11, hematocrit 35, platelets 105. Sodium 140, potassium 3.5, chloride 105, bicarb 26, BUN 4 creatinine 0.74, glucose 76. Alcohol level 89 albumin 3.3, INR 1.3, AST 35, ALT 27, alkaline phosphatase 256, total bilirubin 1.8. STUDIES: 1. EKG by my own evaluation shows sinus rhythm. 2. CT scan of the abdomen shows cirrhosis with ascites. ASSESSMENT AND PLAN: 1. Variceal bleed, history of multiple variceal bands. Start on octreotide IV trip, proton pump inhibitor IV drip. Start prophylactic antibiotics and consult Dr. Wayne, record press operator. I did discuss the case with Dr. Cm Vieyra. For now, we will monitor on the floor, as he is technically stable in terms of blood pressure and hemoglobin. 2. Alcoholic cirrhosis. Still drinking daily. Counseled abstinence. Placed on banana bag IV. Librium. 3. Ascites. We will monitor closely with increasing lower extremity edema and ascites. May need to monitor the patient after stabilization of gastrointestinal bleed for possible paracentesis and initiation of medications such as Lasix and spironolactone. History And Physical [address] [address] NAME: CARLOS MELENDEZ : 61 STATUS : ADM IN PAT#: [id number] AGE: 51 ADM/REG DATE : 12/08/16 MR#: [id number] REPORT SERV DATE: 12/08/16 DICTATED BY: BROOKE LAW DATE: 12/08/16 REPORT STATUS : Draft TRANSCRIBED BY: KRISTINE DATE: 12/08/16 4. Chronic obstructive pulmonary disease. Place on duo nebulizers. Monitor. [facility] Brooke Law M.D. / [id number] CC: Leonid Madrigal M.D. William M. Cooney, MD
--- NOTE | ~2016-12-07 | EGD ---
EGD REPORT [facility] [address] [place] [address] NAME: CARLOS MELENDEZ : 61 STATUS : ADM IN PAT#: [id number] AGE: 51 ADM/REG DATE : 12/08/16 MR#: [id number] REPORT SERV DATE: 12/09/16 DICTATED BY: RENNY SMITH DATE: 12/09/16 REPORT STATUS : Draft [facility]ANSCRIBED BY: [facility] DATE: 12/09/16 Endoscopy Center Patient Name: Carlos Melendez Date of : 1965 Attending MD: RENNY SMITH MD Procedure Date No Time: 12/09/2016 Procedure: Upper GI endoscopy Indications: Hematemesis, Melena Medicines: Monitored Anesthesia Care Complications: No immediate complications. Estimated blood loss: None. Procedure: After obtaining informed consent, the endoscope was passed under direct vision. Throughout the procedure, the patient's blood pressure, pulse, and oxygen saturations were monitored continuously. The GIF [id number] was introduced through the mouth, and advanced to the third part of duodenum. The upper GI endoscopy was accomplished without difficulty. The patient tolerated the procedure well. Findings: Grade I varices were found in the lower third of the esophagus. They were small in largest diameter. There was no stigmata of bleeding. Severe portal hypertensive gastropathy was found in the entire examined stomach with contact oozing, most prominent in the fundus and cardia. The examined duodenum was normal. The cardia and gastric fundus were normal on retroflexion with no suggestion of a mass or gastric varices. The exam was otherwise without abnormality. Impression: - Grade I esophageal varices. - Portal hypertensive gastropathy. - The examination was otherwise normal with no active bleeding. Recommendation: - Return patient to hospital young for ongoing care. - Clear liquid diet today. - Check hemoglobin q 12 hours until stable. - Use Protonix (pantoprazole) 40 mg PO BID indefinitely. Procedure Code(s): --- Professional --- 67309, Esophagogastroduodenoscopy, flexible, transoral; diagnostic, including collection of specimen(s) by brushing or washing, when performed (separate procedure) Diagnosis Code(s): --- Professional --- EGD REPORT [facility] [address] [place]. [address] NAME: CARLOS MELENDEZ : 61 STATUS : ADM IN PAT#: [id number] AGE: 51 ADM/REG DATE : 12/08/16 MR#: [id number] REPORT SERV DATE: 12/09/16 DICTATED BY: RENNY SMITH DATE: 12/09/16 REPORT STATUS : Draft TRANSCRIBED BY: [employer] DATE: 12/09/16 I85.00, Esophageal varices without bleeding K76.6, Portal hypertension K31.89, Other diseases of stomach and duodenum K92.0, Hematemesis K92.1, Melena CPT copyright 2013 [employer]. All rights reserved. The codes documented in this report are preliminary and upon medical insurance coder review may be revised to meet current compliance requirements. Renny Smith MD RENNY SMITH MD 12/09/2016 9:23 AM This report has been signed electronically. Number of Addenda: 0 Note Initiated On: 12/09/2016 8:51 AM Scope Withdrawal Time 0 hours 0 minutes 0 seconds [address] [place] [address]
[2016-12-07 20:37] LABS: BASOPHILS 0.2 %; BASOPHILS ABSOLUTE 0.01 10/3/uL (0.0-0.16); EOSINOPHILS 0.9 %; EOSINOPHILS ABSOLUTE 0.05 10/3/uL (0.0-0.53); HEMOGLOBIN 11.8 g/dL (13.6-17.8); INTERNATIONAL NORMAL RATI 1.3 UNITS (-); LYMPHOCYTES 14.6 %; LYMPHOCYTES ABSOLUTE 0.82 10/3/uL (0.67-4.30); MEAN CORPUS HGB CONC 32.9 g/dL (32.0-36.0); MEAN CORPUSCULAR HEMOGLOB 30.7 pg (26.0-34.0); MEAN CORPUSCULAR VOLUME 93.5 fL (80-100); MEAN PLATELET VOLUME 8.9 fL (9.2-13.0); MONOCYTES 9.9 %; MONOCYTES ABSOLUTE 0.56 10/3/uL (0.21-1.20); NEUTROPHILS 74.4 %; NEUTROPHILS ABSOLUTE 4.19 10/3/uL (2.02-8.40); PROTIME (NOT ORD) 16.2 SEC (12.0-14.5); RED CELL COUNT 3.84 10/6/uL (4.7-6.1)
[2016-12-07 20:39] LABS: ER CBC TAT 0 Hrs 16 Mins; HEMATOCRIT 35.9 % (40.0-51.0); MANUAL DIFF NO %; PLATELET COUNT 105 10/3/uL (150-400); WHITE BLOOD CELLS 5.6 10/3/uL (4.5-10.5)
[2016-12-07 20:42] LABS: A/G RATIO 0.8 (0.7-1.9); ALBUMIN 3.3 G/DL (3.5-5.0); ALCOHOL 84 MG/DL (0); ALKALINE PHOSPHATASE 256 U/L (45-117); BUN (BLOOD UREA NITROGEN) 4 MG/DL (6-23); CALCIUM, SERUM 8.6 MG/DL (8.5-10.4); CHLORIDE, SERUM 105 MMOL/L (96-112); CO2 (CARBON DIOXIDE) 26 MMOL/L (24-34); CREATININE 0.74 MG/DL (0.70-1.30); GFR AFRICAN AMERICAN 122 ML/MIN (>=60); GFR NON AFRICAN AMERICAN 105 ML/MIN (>=60); GLOBULIN 4.4 G/DL (2.5-4.1); GLUCOSE, SERUM 76 MG/DL (60-99); POTASSIUM, SERUM 3.5 MMOL/L (3.5-5.3); SGOT(AST) 73 U/L (5-40); SGPT(ALT) 27 U/L (5-65); SODIUM, SERUM 140 MMOL/L (135-148); TOTAL BILIRUBIN 1.8 MG/DL (0-1.2); TOTAL PROTEIN 7.7 G/DL (6.0-8.5)
[~2016-12-07 21:11] MED LIST changes: +B12250T PO; +BION TEARS OPH; +PROBIOTIC PO; +TRAZ100 PO; +V2 PO; +VITAMIN B PO
[2016-12-08 06:36] LABS: BASOPHILS 0.2 %; BASOPHILS ABSOLUTE 0.01 10/3/uL (0.0-0.16); EOSINOPHILS 1.5 %; EOSINOPHILS ABSOLUTE 0.09 10/3/uL (0.0-0.53); HEMATOCRIT 36.6 % (40.0-51.0); HEMOGLOBIN 11.7 g/dL (13.6-17.8); IMMATURE GRANULOCYTES 0.2 %; IMMATURE GRANULOCYTES ABSOLUTE 0.01 10/3/uL (0.0-0.11); LYMPHOCYTES 11.5 %; LYMPHOCYTES ABSOLUTE 0.67 10/3/uL (0.67-4.30); MEAN CORPUSCULAR HEMOGLOB 30.3 pg (26.0-34.0); MEAN CORPUSCULAR VOLUME 94.8 fL (80-100); MEAN PLATELET VOLUME 8.9 fL (9.2-13.0); MONOCYTES 10.8 %; MONOCYTES ABSOLUTE 0.63 10/3/uL (0.21-1.20); NEUTROPHILS 75.8 %; NEUTROPHILS ABSOLUTE 4.43 10/3/uL (2.02-8.40); PLATELET COUNT 96 10/3/uL (150-400); RBC DISTRIBUTION WIDTH 19.1 % (12.0-16.0); RED CELL COUNT 3.86 10/6/uL (4.7-6.1); WHITE BLOOD CELLS 5.8 10/3/uL (4.5-10.5)
[2016-12-08 06:38] LABS: MANUAL DIFF NO %
[2016-12-08 06:43] LABS: INTERNATIONAL NORMAL RATI 1.6 UNITS (-); PARTIAL THROMBO TIME 34.9 SEC (22.5-37.2); PROTIME (NOT ORD) 18.6 SEC (12.0-14.5)
[2016-12-08 06:59] LABS: A/G RATIO 0.7 (0.7-1.9); ALBUMIN 2.7 G/DL (3.5-5.0); ALKALINE PHOSPHATASE 225 U/L (45-117); BUN (BLOOD UREA NITROGEN) 4 MG/DL (6-23); CALCIUM, SERUM 7.9 MG/DL (8.5-10.4); CHLORIDE, SERUM 108 MMOL/L (96-112); CO2 (CARBON DIOXIDE) 25 MMOL/L (24-34); CPK 152 U/L (0-200); GFR AFRICAN AMERICAN 133 ML/MIN (>=60); GFR NON AFRICAN AMERICAN 115 ML/MIN (>=60); GLUCOSE, SERUM 57 MG/DL (60-99); POTASSIUM, SERUM 3.9 MMOL/L (3.5-5.3); SGOT(AST) 56 U/L (5-40); SGPT(ALT) 24 U/L (5-65); SODIUM, SERUM 142 MMOL/L (135-148); TOTAL BILIRUBIN 2.7 MG/DL (0-1.2); TOTAL PROTEIN 6.7 G/DL (6.0-8.5); TROPONIN I <0.02 NG/ML (<0.05)
[2016-12-08 07:03] LABS: B NATRIURETIC PEPTIDE (BNP) 121.2 PG/ML (< 100.0)
[2016-12-08 10:39] LABS: HEMATOCRIT 35.8 % (40.0-51.0); HEMOGLOBIN 11.5 g/dL (13.6-17.8)
[2016-12-08 15:21] LABS: HEMATOCRIT 35.2 % (40.0-51.0); HEMOGLOBIN 11.1 g/dL (13.6-17.8)
[2016-12-08 20:27] LABS: HEMATOCRIT 34.5 % (40.0-51.0); HEMOGLOBIN 11.1 g/dL (13.6-17.8)
[2016-12-09 05:04] LABS: INTERNATIONAL NORMAL RATI 1.5 UNITS (-); PROTIME (NOT ORD) 18.3 SEC (12.0-14.5)
[2016-12-09 05:05] LABS: BASOPHILS 0.3 %; BASOPHILS ABSOLUTE 0.02 10/3/uL (0.0-0.16); EOSINOPHILS 4.1 %; EOSINOPHILS ABSOLUTE 0.25 10/3/uL (0.0-0.53); HEMATOCRIT 34.7 % (40.0-51.0); HEMOGLOBIN 11.2 g/dL (13.6-17.8); IMMATURE GRANULOCYTES 0.2 %; IMMATURE GRANULOCYTES ABSOLUTE 0.01 10/3/uL (0.0-0.11); LYMPHOCYTES 12.7 %; LYMPHOCYTES ABSOLUTE 0.78 10/3/uL (0.67-4.30); MEAN CORPUS HGB CONC 32.3 g/dL (32.0-36.0); MEAN CORPUSCULAR HEMOGLOB 30.9 pg (26.0-34.0); MEAN CORPUSCULAR VOLUME 95.9 fL (80-100); MEAN PLATELET VOLUME 9.5 fL (9.2-13.0); MONOCYTES 11.7 %; MONOCYTES ABSOLUTE 0.72 10/3/uL (0.21-1.20); NEUTROPHILS ABSOLUTE 4.37 10/3/uL (2.02-8.40); PLATELET COUNT 94 10/3/uL (150-400); RBC DISTRIBUTION WIDTH 18.6 % (12.0-16.0); RED CELL COUNT 3.62 10/6/uL (4.7-6.1); WHITE BLOOD CELLS 6.2 10/3/uL (4.5-10.5)
[2016-12-09 05:06] LABS: MANUAL DIFF NO %
[2016-12-09 05:11] LABS: BUN (BLOOD UREA NITROGEN) 4 MG/DL (6-23); CALCIUM, SERUM 7.9 MG/DL (8.5-10.4); CHLORIDE, SERUM 108 MMOL/L (96-112); CO2 (CARBON DIOXIDE) 26 MMOL/L (24-34); CREATININE 0.75 MG/DL (0.70-1.30); GFR AFRICAN AMERICAN 121 ML/MIN (>=60); GFR NON AFRICAN AMERICAN 105 ML/MIN (>=60); POTASSIUM, SERUM 3.6 MMOL/L (3.5-5.3); SODIUM, SERUM 139 MMOL/L (135-148)
[2016-12-09 05:12] LABS: GLUCOSE, SERUM 119 MG/DL (60-99)
[2016-12-09 11:01] LABS: HEMOGLOBIN 12.4 g/dL (13.6-17.8)
[2016-12-09 11:02] LABS: HEMATOCRIT 38.3 % (40.0-51.0)
[2016-12-09 22:25] LABS: HEMATOCRIT 36.7 % (40.0-51.0); HEMOGLOBIN 11.9 g/dL (13.6-17.8)
[2016-12-10 06:40] LABS: BASOPHILS 0.5 %; BASOPHILS ABSOLUTE 0.03 10/3/uL (0.0-0.16); EOSINOPHILS 2.3 %; EOSINOPHILS ABSOLUTE 0.15 10/3/uL (0.0-0.53); HEMATOCRIT 35.1 % (40.0-51.0); HEMOGLOBIN 11.4 g/dL (13.6-17.8); IMMATURE GRANULOCYTES 0.2 %; IMMATURE GRANULOCYTES ABSOLUTE 0.01 10/3/uL (0.0-0.11); LYMPHOCYTES 14.3 %; LYMPHOCYTES ABSOLUTE 0.94 10/3/uL (0.67-4.30); MEAN CORPUS HGB CONC 32.5 g/dL (32.0-36.0); MEAN CORPUSCULAR VOLUME 95.4 fL (80-100); MEAN PLATELET VOLUME 10.1 fL (9.2-13.0); MONOCYTES 10.3 %; MONOCYTES ABSOLUTE 0.68 10/3/uL (0.21-1.20); NEUTROPHILS 72.4 %; NEUTROPHILS ABSOLUTE 4.78 10/3/uL (2.02-8.40); PLATELET COUNT 100 10/3/uL (150-400); RED CELL COUNT 3.68 10/6/uL (4.7-6.1); WHITE BLOOD CELLS 6.6 10/3/uL (4.5-10.5)
[2016-12-10 06:43] LABS: MANUAL DIFF NO %
[2016-12-10 06:46] LABS: INTERNATIONAL NORMAL RATI 1.4 UNITS (-); PARTIAL THROMBO TIME 33.3 SEC (22.5-37.2); PROTIME (NOT ORD) 17.2 SEC (12.0-14.5)
[2016-12-10 06:58] LABS: A/G RATIO 0.7 (0.7-1.9); ALBUMIN 2.5 G/DL (3.5-5.0); BUN (BLOOD UREA NITROGEN) 3 MG/DL (6-23); CALCIUM, SERUM 8.3 MG/DL (8.5-10.4); CHLORIDE, SERUM 108 MMOL/L (96-112); CO2 (CARBON DIOXIDE) 25 MMOL/L (24-34); GFR AFRICAN AMERICAN 125 ML/MIN (>=60); GFR NON AFRICAN AMERICAN 108 ML/MIN (>=60); GLOBULIN 3.7 G/DL (2.5-4.1); GLUCOSE, SERUM 96 MG/DL (60-99); POTASSIUM, SERUM 3.3 MMOL/L (3.5-5.3); SGOT(AST) 64 U/L (5-40); SGPT(ALT) 19 U/L (5-65); SODIUM, SERUM 142 MMOL/L (135-148); TOTAL PROTEIN 6.2 G/DL (6.0-8.5)
[2016-12-10 06:59] LABS: ALKALINE PHOSPHATASE 177 U/L (45-117); TOTAL BILIRUBIN 1.2 MG/DL (0-1.2)
[2016-12-10 10:31] LABS: HEMATOCRIT 36.1 % (40.0-51.0); HEMOGLOBIN 11.7 g/dL (13.6-17.8)
[2016-12-10] MEDS ORDERED: LEVAQUIN750 MG PO (15:45)
[2016-12-10] MEDS ORDERED: SPIRO25 PO (15:46)
[2016-12-10] MEDS ORDERED: L40 PO (15:46)
[2016-12-10] MEDS ORDERED: FESO4 PO (15:47)
[2016-12-10] MEDS ORDERED: LIBRIUM 5 MG CAP5 MG PO ×2 (15:48)
[2016-12-10] MEDS ORDERED: FOLIC PO (15:49)
[2016-12-10] MEDS ORDERED: THERGRANM PO (15:50)
[2016-12-10] MEDS ORDERED: ENULOSE PO (15:51)
== END 2016-12-10 17:10 | disposition home or self-care (01) | DRG 432 ==
LOC: ER 21:11 → 7NO 12-08 00:11
PROVIDERS: Hospitalist; Internal Medicine; Internal Medicine Gastroenterology; Nurse Practitioner Acute Care; Nurse Practitioner Family
PROC: 0DJ08ZZ Inspection of Upper Intestinal Tract, Via Natural or Artificial Opening Endoscopic (ICD-10-PCS; principal; 2016-12-09 07:30)
DX: K70.31 Alcoholic cirrhosis of liver with ascites (principal); I85.11 Secondary esophageal varices with bleeding; K75.81 Nonalcoholic steatohepatitis (NASH); K76.6 Portal hypertension; J44.9 Chronic obstructive pulmonary disease, unspecified; F10.10 Alcohol abuse, uncomplicated
CPT/HCPCS: 36415; 74176; 80048; 80053; 82140; 82550; 82553; 83605; 83615; 83735; 83880; 84443; 84484; 85014; 85018; 85025; 85610; 85730; 86850; 86900; 86901; 93005; 93306; 96374; 96375; 99291; A9270-GY; C9113; G0480; J0694; J1956; J2405; J2765; J3010; J3411; J3475